=== PATIENT | female | born 1995 | race African-American/Black ===

== ENCOUNTER 2016-11-12 15:20 | Emergency (ER) | payer SELFPAY ==
[~2016-11-12 15:20] MED LIST: BACT800T5 PO
[2016-11-12 15:23] VITALS: BP 126/80; PULSE 90; RESP 18; TEMP 98.9; O2SAT 99
[2016-11-12 16:42] LABS: BLOOD, URINE NEG (NEG); COMMENT (UR) CULT NOT INDICATED; CULTURE IF INDICATED CULT NOT INDICATED; GLUCOSE,URINE NEG (NEG); KETONE, URINE NEG (NEG); MUCUS URINE FEW /lpf (OCC); NITRITE,URINE NEG (NEG); SQUAMOUS EPITHELIAL CELL URINE 1 /hpf (0-5); URINE COLOR YELLOW (YELLW/STRAW)
--- NOTE | 2016-11-12 18:17 | PD ---
HPI Chief Complaint: Bleeding Time Seen by Provider: 18:17 Travel History International Travel<30 days: No Contact w/Intl Traveler<30days: No Traveled to known affect area: No History of Present Illness HPI 21-year-old female presents to the emergency department for evaluation of vaginal bleeding and spotting for 3 weeks. Patient states that for the past 3 weeks she's had spotting and light vaginal bleeding. States that today she had heavier bleeding like a menstrual cycle and had some lower abdominal cramping earlier today. States she is currently not experiencing any pain. States that she has not had a menstrual cycle in 3 years since she had her Nexplanon placed. States that her implantation devices due to be removed in 3 months. Denies any fever, chills, nausea, vomiting, diarrhea, constipation, vaginal discharge. Unsure of status. She does engage in sexual intercourse without use of a condom. No other complaints. PFSH Past Medical History Medical History: Denies Significant Hx Bipolar Disorder: Yes Diminished Hearing: No Immunizations Current: Yes Tetanus Vaccination: < 5 Years Influenza Vaccination: No ?: Not LMP: 10/31/16 : 0 Past Surgical History Surgical History: No Previous Surgery Social History Alcohol Use: No Tobacco Use: No Substance Use: No Allergies-Medications (Allergen,Severity, Reaction): Coded Allergies: Crab (Verified Allergy, Severe, Hives, 11/12/16) Shrimp (Verified Allergy, Severe, HIVES, 11/12/16) PT. DENIES ALLERGY TO SHRIMP Reported Meds & Prescriptions Reported Meds & Active Scripts Active No Active Prescriptions or Reported Medications Review of Systems Except as stated in HPI: all other systems reviewed are Neg Physical Exam Narrative GENERAL: Well-nourished and well-developed pleasant patient in no acute distress who is nontoxic appearing. SKIN: Warm and dry. HEAD: Normocephalic and atraumatic. EYES: No injection, drainage, or hyphema noted. PERRLA. EOMI. ENT: No nasal drainage noted. Oropharynx is clear. NECK: Supple and the trachea is midline. CARDIOVASCULAR: Regular rate and rhythm. RESPIRATORY: Breath sounds are equal bilaterally with no accessory muscle use, wheezing, rhonchi, or crackles. GASTROINTESTINAL: Abdomen is soft, non-tender, and nondistended. GENITOURINARY: Normal external genitalia without lesions or erythema. Vaginal vault with thin white discharge. Cervical os was closed without drainage. Positive cervical motion tenderness. Uterus nontender and nonenlarged. Bilateral adnexa nontender without masses. Performed in the presence of Ana SON. MUSCULOSKELETAL: No obvious deformities, swelling, cyanosis, or ecchymosis is present throughout the upper and lower extremities. Patient has full range of motion without any signs of neurovascular compromise. NEUROLOGICAL: Awake, alert, and oriented. Normal speech and gait. Cranial nerves are grossly intact. Data Data Last Documented VS Vital Signs Date Time Temp Pulse Resp B/P Pulse Ox O2 Delivery O2 Flow Rate FiO2 11/12/16 17:32 86 18 99 Room Air 11/12/16 15:23 98.9 126/80 Orders Urinalysis - C+S If Indicated (11/12/16 15:54) Ed Urine Pregnancytest Poc (11/12/16 15:54) Gc And Chlamydia Pcr (11/12/16 18:39) Wet Prep Profile (11/12/16 18:39) Ceftriaxone Inj (Rocephin Inj) (11/12/16 18:45) Lidocaine 1% Inj (50 Ml) (Xylocaine 1% I (11/12/16 18:45) Azithromycin (Zithromax) (11/12/16 18:45) Labs Laboratory Tests Test 11/12/16 11/12/16 16:07 18:38 Urine Color YELLOW Urine Turbidity CLEAR Urine pH 6.0 Urine Specific [place] 1.035 Urine Protein TRACE mg/dL Urine Glucose (UA) NEG mg/dL Urine Ketones NEG mg/dL Urine Occult Blood NEG Urine Nitrite NEG Urine Bilirubin NEG Urine Urobilinogen 2.0 MG/DL Urine Leukocyte Esterase TRACE Urine RBC 3 /hpf Urine WBC 6 /hpf Urine Squamous Epithelial 1 /hpf Cells Urine Mucus FEW /lpf Microscopic Urinalysis Comment CULT NOT INDICATED Clue Cells (Wet Prep) NONE SEEN Vaginal Trichomonas (Wet Prep) NONE SEEN Vaginal Yeast (Wet Prep) NONE SEEN MDM Medical Decision Making Medical Screen Exam Complete: Yes Emergency Medical Condition: Yes Differential Diagnosis Dysmenorrhea versus versus PID versus STI Narrative Course 21-year-old female presents to the emergency department for evaluation of vaginal spotting for 3 weeks. Patient is afebrile, vital signs are stable. Abdominal examination is benign. There is no blood noted on pelvic examination. There is some scant vaginal discharge and cervical motion tenderness. ED urine test is negative. Urinalysis is unremarkable. Wet prep is negative. Gonorrhea and chlamydia is pending. Patient is treated prophylactically for PID with Rocephin 250 mg IM and Zithromax 1 g orally. The patient is likely having dysmenorrhea as her Nexplanon is due to soon and she will be ovulating again. I discussed this with the patient and she is advised to follow up as an outpatient with her right of way cutter. Patient verbalizes understanding and agreement with treatment plan. Diagnosis Primary Impression: Dysmenorrhea Referrals: [facility] Department Manager Patient Instructions: General Instructions Additional Instructions: Follow-up with your Primary Care Physician or OBGYN. Return to the ED for any acute worsening of symptoms. Med/Other Pt SpecificInfo: No Change to Meds Scripts No Active Prescriptions or Reported Meds Disposition: 01 DISCHARGE HOME Condition: Stable Stephanie Steward Nov 12, 2016 18:17
[2016-11-12] MEDS ORDERED: cefTRIAXone 250 MG VIAL IM ONE (18:45)
[2016-11-12] MEDS ORDERED: AZITHROMYCIN 250 MG TAB PO ONE (18:45)
[2016-11-12] MEDS ORDERED: LIDOCAINE HCL 1% 50 ML VIAL IM ONE (18:45)
[2016-11-12 23:08] LABS: CHLAMYDIA PCR NOT DETECTED (NOT DETECT); NEISSERIA PCR NOT DETECTED (NOT DETECT)
== END 2016-11-12 19:27 | disposition home or self-care (01) ==
LOC: NEPD 15:20
DX: N94.6 Dysmenorrhea, unspecified (principal); F31.9 Bipolar disorder, unspecified
CPT/HCPCS: 81001; 84703; 87210; 87491; 87591; 96372; 99284; J0696

== ENCOUNTER 2017-01-10 12:17 | Emergency (ER) | payer SELFPAY ==
[~2017-01-10] VITALS: Ht 162.6 cm; Wt 75.0 kg
[2017-01-10 12:19] VITALS: BP 133/85; PULSE 100; RESP 20; TEMP 99.8; O2SAT 97
--- NOTE | 2017-01-10 12:58 | PD ---
HPI Chief Complaint: Complaint Time Seen by Provider: 12:29 Travel History International Travel<30 days: No Contact w/Intl Traveler<30days: No Traveled to known affect area: No History of Present Illness HPI The patient was seen and examined in the presence of the nurse. This patient is worried about having a bladder infection. She does have some dysuria. Severity is mild to moderate. No vomiting or documented fever. Current temp 99.8 PFSH Past Medical History Bipolar Disorder: Yes Diminished Hearing: No Immunizations Current: Yes ?: Not : 0 Past Surgical History Surgical History: No Previous Surgery Social History Alcohol Use: No Tobacco Use: No Substance Use: No Allergies-Medications (Allergen,Severity, Reaction): Coded Allergies: crab (Unverified Allergy, Severe, Hives, 01/10/17) shrimp (Unverified Allergy, Severe, HIVES, 01/10/17) PT. DENIES ALLERGY TO SHRIMP Reported Meds & Prescriptions Reported Meds & Active Scripts Active No Active Prescriptions or Reported Medications Review of Systems HENT: No: Headaches Cardiovascular: No: Chest Pain or Discomfort Respiratory: No: Cough Physical Exam Narrative GASTROINTESTINAL: Abdomen soft, non-tender, nondistended. Positive bowel sounds. No hepato-splenomegaly, or palpable masses. No guarding. SKIN: Focused skin assessment reveals no rash or ulcers. Skin is warm and dry. Palpation shows no induration or nodules. Psych: Normal mood and affect. Normal insight and judgment. Data Data Last Documented VS Vital Signs Date Time Temp Pulse Resp B/P (MAP) Pulse Ox O2 Delivery O2 Flow Rate FiO2 01/10/17 12:19 99.8 100 20 133/85 (101) 97 Room Air Orders Orders Urinalysis - C+S If Indicated (01/10/17 12:34) Ed Urine Pregnancytest Poc (01/10/17 12:34) Urine Culture (01/10/17 12:35) Labs Laboratory Tests Test 01/10/17 12:35 Urine Color YELLOW Urine Turbidity CLEAR Urine pH 6.5 Urine Specific [place] 1.018 Urine Protein NEG mg/dL Urine Glucose (UA) NEG mg/dL Urine Ketones NEG mg/dL Urine Occult Blood SMALL Urine Nitrite NEG Urine Bilirubin NEG Urine Urobilinogen LESS THAN 2.0 MG/DL Urine Leukocyte Esterase MOD Urine RBC 7 /hpf Urine WBC 21 /hpf Urine Squamous Epithelial Cells <1 /hpf Urine Mucus FEW /lpf Microscopic Urinalysis Comment CULTURE INDICATED MDM Medical Decision Making Medical Screen Exam Complete: Yes Emergency Medical Condition: Yes Medical Record Reviewed: Yes Differential Diagnosis Cystitis, pyelonephritis, UTI Narrative Course I have reviewed the patient's electronic medical record. Prior culture showed Escherichia coli sensitive to all antibiotic Urinalysis shows 21 white cells and will be cultured Macrobid prescribed Diagnosis Primary Impression: Acute cystitis Qualified Codes: N30.00 - Acute cystitis without hematuria Additional Instructions: The patient was advised to follow up with their physician and return if they worsen. Med/Other Pt SpecificInfo: Prescription(s) given Scripts Nitrofurantoin Monohydrate Macrocrystals (Macrobid) 100 Mg Capsule 100 MG PO BID for Infection, #10 CAP 0 Refills Prov: Jv Blankenship MD 01/10/17 Disposition: 01 DISCHARGE HOME Condition: Stable Jv Blankenship MD Jan 10, 2017 12:58
[2017-01-10 13:13] LABS: BLOOD, URINE SMALL (NEG); COMMENT (UR) CULTURE INDICATED; CULTURE IF INDICATED CULTURE INDICATED; GLUCOSE,URINE NEG (NEG); KETONE, URINE NEG (NEG); MUCUS URINE FEW /lpf (OCC); NITRITE,URINE NEG (NEG); PH, URINE 6.5 (5.0-8.5); SQUAMOUS EPITHELIAL CELL URINE <1 /hpf (0-5); URINE COLOR YELLOW (YELLW/STRAW)
[2017-01-10] MEDS ORDERED: MACR100C2 PO (14:11)
== END 2017-01-10 14:38 | disposition home or self-care (01) ==
LOC: NEPD 12:17
DX: N30.00 Acute cystitis without hematuria (principal); B96.89 Other specified bacterial agents as the cause of diseases classified elsewhere
CPT/HCPCS: 81001; 84703; 87086; 99283

== ENCOUNTER 2017-01-12 11:38 | Emergency (ER) | payer SELFPAY ==
[~2017-01-12] VITALS: Ht 162.6 cm; Wt 74.0 kg
[~2017-01-12 11:38] MED LIST changes: -BACT800T5 PO; +MACR100C2 PO
[2017-01-12 11:39] VITALS: BP 135/76; PULSE 123; RESP 17; TEMP 102.8; O2SAT 98
[2017-01-12 13:35] LABS: AUTOMATED NEUTROPHIL # 6.5 TH/MM3 (1.8-7.7); BASOPHIL % 0.3 % (0.0-2.0); EOSINOPHIL % 0.1 % (0.0-4.0); HEMATOCRIT 41.4 % (35.0-46.0); HEMO FLAGS DIFF FINAL; LYMPH % 10.6 % (9.0-44.0); LYMPHOCYTE # 0.9 TH/MM3 (1.0-4.8); MEAN CELL VOLUME 88.1 FL (80.0-100.0); MEAN CORPUSCULAR HEMOGLOBIN 29.4 PG (27.0-34.0); MEAN CORPUSCULAR HGB CONC 33.3 % (32.0-36.0); MONO % 11.3 % (0.0-8.0); NEUT % 77.7 % (16.0-70.0); PLATELET COUNT 277 TH/MM3 (150-450); RED CELL DISTRIBUTION WIDTH 13.3 % (11.6-17.2); WHITE BLOOD COUNT 8.3 TH/MM3 (4.0-11.0)
[2017-01-12 13:50] LABS: BACTERIA, URINE OCC /hpf; BLOOD, URINE SMALL (NEG); COMMENT (UR) CULTURE INDICATED; CULTURE IF INDICATED CULTURE INDICATED; GLUCOSE,URINE NEG (NEG); KETONE, URINE NEG (NEG); MUCUS URINE FEW /lpf (OCC); NITRITE,URINE NEG (NEG); SQUAMOUS EPITHELIAL CELL URINE 4 /hpf (0-5); URINE COLOR YELLOW (YELLW/STRAW)
[2017-01-12 13:52] LABS: ALT (GPT) 24 U/L (10-53); ANION GAP 7 MEQ/L (5-15); AST (GOT) 20 U/L (15-37); BICARBONATE 27.7 MEQ/L (21.0-32.0); BLOOD UREA NITROGEN 7 MG/DL (7-18); CHLORIDE 99 MEQ/L (98-107); GLOMERULAR FILTRATION RATE 101 ML/MIN (>89); POTASSIUM 3.7 MEQ/L (3.5-5.1); SODIUM (NA) 134 MEQ/L (136-145)
[2017-01-12 13:54] LABS: ALKALINE PHOSPHATASE 71 U/L (45-117); TOTAL BILIRUBIN ADULT 0.5 MG/DL (0.2-1.0)
[2017-01-12 14:24] VITALS: BP 124/84; PULSE 130; RESP 16; TEMP 103; O2SAT 99
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
[2017-01-12] MEDS ORDERED: ACETAMINOPHEN 325 MG TAB PO ONE (14:45)
[2017-01-12] MEDS ORDERED: SODIUM CHLOR 0.9% 1000 ML INJ 1,000 ML IV ONE ×2 (14:45)
[2017-01-12] MEDS ORDERED: cefTRIAXone INJ 1,000 MG in SODIUM CHLORIDE 0.9% INJ 100 ML IV ONE (14:45)
[2017-01-12] MEDS ORDERED: IOHEXOL 350 MG/ML 10 ML VIAL (for RAD DIAG) IVCONTRAST ONE (17:35)
--- NOTE | 2017-01-12 17:51 | RADRPT ---
EXAM DATE/TIME: 01/12/2017 17:27 [facility] COMPARISON: No previous studies available for comparison. INDICATIONS : Fever and lower back pain. Recent UTI diagnosis. IV CONTRAST: 85 cc Omnipaque 350 (iohexol) IV ORAL CONTRAST: No oral contrast ingested. RADIATION DOSE: 14.78 CTDIvol (mGy) MEDICAL HISTORY : None SURGICAL HISTORY : None. ENCOUNTER: Initial ACUITY: 1 day PAIN SCALE: 4/10 LOCATION: Bilateral lower back TECHNIQUE: Volumetric scanning of the abdomen and pelvis was performed. Using automated exposure control and ad justment of the mA and/or kV according to patient size, radiation dose was kept as low as reasonably achievable to obtain optimal diagnostic quality images. DICOM format image data is available electro nically for review and comparison. FINDINGS: LOWER LUNGS: The visualized lower lungs are clear. LIVER: Homogeneous density without lesion. There is no dilation of the biliary tree. No calcified gallston es. There is mild hepatic steatosis. SPLEEN: Normal size without lesion. PANCREAS: Within normal limits. KIDNEYS: Normal in size and shape. There is no mass, stone or hydronephrosis. ADRENAL GLANDS: Within normal limits. VASCULAR: There is no aortic aneurysm. BOWEL/MESENTERY: No oral contrast was given limiting the sensitivity. There is a mildly nonspecific, nonobstructed gas pattern with multiple loops of nondilated air-containing small bowel. There are multiple small air-f luid levels in the colon and small bowel. There is no free intraperitoneal air or fluid. ABDOMINAL WALL: Within normal limits. RETROPERITONEUM: There is no lymphadenopathy. BLADDER: No wall thickening or mass. REPRODUCTIVE: Within normal limits. INGUINAL: There is no lymphadenopathy or hernia. MUSCULOSKELETAL: Within normal limits for patient age. CONCLUSION: 1. The kidneys are unremarkable appearance with no renal calculi structure in. 2. Mildly nonspecific, nonobstructed bowel gas pattern which could represent gastroenteritis and/or i leus. 3. Mild hepatic steatosis. Barrett Peters MD on January 12, 2017 at 17:47 Board Certified Radiologist. This report was verified electronically.
[2017-01-12] MEDS ORDERED: AZITHROMYCIN PWD FOR SUSP 1 GM PACKET PO ONE (18:00)
[2017-01-12 18:57] VITALS: BP 132/75; PULSE 110; RESP 18; TEMP 100.7; O2SAT 99
[2017-01-12] MEDS ORDERED: MACR100C2 PO (18:59)
[2017-01-12] MEDS ORDERED: DOXY100C PO (18:59)
[2017-01-12] MEDS ORDERED: METR-1 PO (18:59)
[2017-01-12] MEDS ORDERED: IBUPROFEN 600 MG TAB PO ONE (19:15)
[2017-01-12] MEDS ORDERED: AZITHROMYCIN 250 MG TAB PO ONE (19:30)
[2017-01-12 22:32] LABS: CHLAMYDIA PCR NOT DETECTED (NOT DETECT); NEISSERIA PCR NOT DETECTED (NOT DETECT)
== END 2017-01-12 19:39 | disposition home or self-care (01) ==
LOC: NEPE 11:38
DX: N10 Acute pyelonephritis (principal); N73.9 Female pelvic inflammatory disease, unspecified
CPT/HCPCS: 74177; 80053; 81001; 83605; 84703; 85025; 87040; 87081; 87086; 87210; 87491; 87591; 87804; 87880; J0696; J7030; Q9967; 96365; 96366

== ENCOUNTER 2017-02-17 16:17 | Emergency (ER) | payer SELFPAY ==
[~2017-02-17] VITALS: Ht 162.6 cm; Wt 77.0 kg
[~2017-02-17 16:17] MED LIST changes: +DOXY100C PO; +METR-1 PO
[2017-02-17 16:18] VITALS: BP 136/84; PULSE 122; RESP 20; TEMP 99.7; O2SAT 99
--- NOTE | 2017-02-17 18:11 | PD ---
HPI Chief Complaint: Laceration/Skin Injury Time Seen by Provider: 18:11 Travel History International Travel<30 days: No Contact w/Intl Traveler<30days: No Traveled to known affect area: No History of Present Illness HPI 21-year-old female presents emergency Department with concern and complaint of possible lacerations to her right forearm and hand after punching a glass window. No tetanus status. Denies paresthesias, loss of sensation, decreased range of motion, decreased strength to the affected extremity. Bleeding is controlled. She has not taken any medications or tried any treatments to alleviate her symptoms. Symptoms are mild in severity. No known aggravating or relieving factors. Denies fever, vomiting. Allergies to crab and shrimp. No other medical complaints. No other modifying factors or associated signs and symptoms. PFSH Past Medical History Hx Anticoagulant Therapy: No Bipolar Disorder: Yes Cardiovascular Problems: No Chemotherapy: No Cerebrovascular Accident: No Diabetes: No Diminished Hearing: No Respiratory: No Immunizations Current: Yes ?: Not : 0 Past Surgical History Hysterectomy: No Social History Alcohol Use: No Tobacco Use: No Substance Use: No Allergies-Medications (Allergen,Severity, Reaction): Coded Allergies: crab (Unverified Allergy, Severe, Hives, 02/17/17) shrimp (Unverified Allergy, Severe, HIVES, 02/17/17) PT. DENIES ALLERGY TO SHRIMP Reported Meds & Prescriptions Reported Meds & Active Scripts Active Review of Systems Except as stated in HPI: all other systems reviewed are Neg Physical Exam Narrative GENERAL: Well-nourished, well-developed black female patient, in no acute distress SKIN: Warm and dry. Palmar aspect of right hand with approximately 1.5 cm horseshoe-shaped cut; bleeding controlled. Palmar aspect of right forearm with superficial abrasions; bleeding controlled. Both areas are without erythema, edema. No signs of infection. Right hand with full range of motion at all fingers and sensory intact; fingers are pink and warm with less than 2 second cap refill. HEAD: Atraumatic. Normocephalic. EYES: Pupils equal and round. No scleral icterus. No injection or drainage. ENT: Mucosa pink and moist. Airway patent. NECK: Trachea midline. CARDIOVASCULAR: Regular rate. RESPIRATORY: No accessory muscle use. GASTROINTESTINAL: Rounded. MUSCULOSKELETAL: No obvious deformities. No clubbing. No cyanosis. No edema. NEUROLOGICAL: Awake and alert. Oriented 3. No obvious cranial nerve deficits. Motor grossly within normal limits. Normal speech. PSYCHIATRIC: Appropriate mood and affect; insight and judgment normal. Data Data Last Documented VS Vital Signs Date Time Temp Pulse Resp B/P (MAP) Pulse Ox O2 Delivery O2 Flow Rate FiO2 02/17/17 16:18 99.7 122 20 136/84 (101) 99 Room Air Orders Orders Tetanus/Diphtheria Tox Adult (Tetanus/Di (02/17/17 18:15) Ed Discharge Order (02/17/17 18:24) MDM Medical Decision Making Medical Screen Exam Complete: Yes Emergency Medical Condition: Yes Medical Record Reviewed: Yes Differential Diagnosis Laceration, cut, abrasion Narrative Course 21-year-old female with a cut to the right hand and abrasion of her right forearm after hitting through a glass window. Tetanus updated in the ER. Wound care provided. Dressings applied. Instructed patient on wound care. Instructed patient to follow up with primary care provider. Patient verbalizes understanding and agreement with treatment plan. Patient is medically cleared and stable for discharge. Discussed reasons to return to the emergency department. Patient agrees with treatment plan. The patients vital signs are stable and the patient is stable for outpatient follow-up and treatment. Patient discharged home, stable and in no acute distress. Diagnosis Primary Impression: Cut of right hand Qualified Codes: S61.401A - Unspecified open wound of right hand, initial encounter Additional Impression: Abrasion of right forearm Qualified Codes: S50.811A - Abrasion of right forearm, initial encounter Referrals: [facility] Primary Care Physician Patient Instructions: Acute Wound Care (DC), General Instructions Additional Instructions: Ibuprofen or Tylenol as instructed for pain and inflammation Keep area clean and dry Antibiotic ointment as directed nausea for wound care Bandage as needed Your tetanus vaccination was updated at today's visit Follow-up with primary care provider Return to the emergency department immediately with worsening of symptoms Med/Other Pt SpecificInfo: No Meds Exist/No RX given Disposition: 01 DISCHARGE HOME Condition: Stable Stephanie Jeffries Feb 17, 2017 18:11
[2017-02-17] MEDS ORDERED: TETANUS/DIPHTHERIA TOXOID ADULT 0.5 ML VIAL IM ONE (18:15)
== END 2017-02-17 18:50 | disposition home or self-care (01) ==
LOC: NEPK 16:17
DX: S61.401A Unspecified open wound of right hand, initial encounter (principal); S50.811A Abrasion of right forearm, initial encounter; Z23 Encounter for immunization; Z86.59 Personal history of other mental and behavioral disorders; W22.09XA Striking against other stationary object, initial encounter
CPT/HCPCS: 90471; 90714

== ENCOUNTER 2017-09-13 17:01 | Emergency (ER) | payer OTHER ==
[~2017-09-13] VITALS: Ht 162.6 cm; Wt 72.5 kg
[2017-09-13 17:21] VITALS: BP 165/79; PULSE 93; RESP 16; TEMP 99.8; O2SAT 99
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
[2017-09-13 20:25] LABS: BACTERIA, URINE RARE /hpf; BILIRUBIN, URINE NEG (NEG); BLOOD, URINE NEG (NEG); GLUCOSE,URINE NEG (NEG); KETONE, URINE TRACE mg/dL (NEG); MUCUS URINE FEW /lpf (OCC); NITRITE,URINE NEG (NEG); PH, URINE 6.5 (5.0-8.5); SQUAMOUS EPITHELIAL CELL URINE 9 /hpf (0-5); URINE COLOR YELLOW (YELLW/STRAW); URINE LEUKOCYTE ESTERASE LARGE (NEG)
== END 2017-09-13 21:49 | disposition home or self-care (01) ==
LOC: NEPD 17:01
DX: R07.89 Other chest pain (principal); J06.9 Acute upper respiratory infection, unspecified; O98.519 Other viral diseases complicating pregnancy, unspecified trimester; B96.89 Other specified bacterial agents as the cause of diseases classified elsewhere; R05 Cough; F31.9 Bipolar disorder, unspecified; Z3A.00 Weeks of gestation of pregnancy not specified
CPT/HCPCS: 81001; 84703; 86403; 87086; 99283

== ENCOUNTER 2017-10-26 21:59 | Emergency (ER) | payer OTHER ==
[2017-10-26 22:32] VITALS: BP 122/82; PULSE 82; RESP 16; O2SAT 100
--- NOTE | 2017-10-26 23:53 | PD ---
HPI Chief Complaint needs to be cleared for care home Date Seen: Oct 26, 2017 Time Seen: 23:30 Travel History International Travel<30 Days: No Contact w/Intl Traveler<30Days: No Known Affected Area: No History of Present Illness HPI pt presents c/o needing to be cleared for care home. pt is a 22 yo presenting at 18 wks. care has been with dr. ridley and uncomplicated to date. pt denies n/v/VB or contractions History Past Medical History Medical History: Denies Significant Hx Past Surgical History Surgical History: No Previous Surgery Family History Family History: Negative Social History Alcohol Use: No Tobacco Use: No Substance Abuse: No Allergies-Medications (Allergen,Severity, Reaction): Coded Allergies: crab (Unverified Allergy, Severe, Hives, 10/26/17) shrimp (Unverified Allergy, Severe, HIVES, 10/26/17) PT. DENIES ALLERGY TO SHRIMP Home Meds No Active Prescriptions or Reported Meds Review of Systems Except as stated in HPI: all other systems reviewed are Neg Physical Exam Vital Signs Date Time Temp Pulse Resp B/P (MAP) Pulse Ox O2 Delivery O2 Flow Rate FiO2 10/26/17 22:32 82 16 122/82 (95) 100 Room Air Narrative GENERAL: Well-nourished, well-developed patient. SKIN: Warm and dry. HEAD: Normocephalic and atraumatic. EYES: No scleral icterus. No injection or drainage. ENT: No nasal drainage noted. Mucous membranes pink. Airway patent. NECK: Supple, trachea midline. No JVD. CARDIOVASCULAR: Regular rate and rhythm without murmurs, gallops, or rubs. RESPIRATORY: Breath sounds equal bilaterally. No accessory muscle use. BREASTS: Bilateral exam showed no masses , no retractions, no nipple discharge. ABDOMEN/GI: Abdomen soft, non-tender, bowel sounds present, no rebound, no guarding Gravid FHT's: Baseline: [-] 160 EXTREMITIES: No cyanosis or edema. BACK: Nontender without obvious deformity. No CVA tenderness. NEUROLOGICAL: Awake and alert. Motor and sensory grossly within normal limits. Five out of 5 muscle strength in all muscle groups. Normal speech. Data Data Vital Signs Reviewed: Yes MDM Interpretation(s) IUP @ 18wk Plan d/c to care home no acute problems with noted Disposition: 01 DISCHARGE HOME Condition: Stable Scripts No Active Prescriptions or Reported Meds Christy Holman MD Oct 26, 2017 23:53
== END 2017-10-27 00:15 | disposition home or self-care (01) ==
LOC: HOBED 21:59 → EEVIPCON 21:59 → HOBED 10-27 00:15
DX: Z02.89 Encounter for other administrative examinations (principal); O99.89 Other specified diseases and conditions complicating pregnancy, childbirth and the puerperium; Z3A.18 18 weeks gestation of pregnancy
CPT/HCPCS: 99281

== ENCOUNTER 2018-03-28 20:31 | Inpatient (IN) ==
[2018-03-28] MEDS ORDERED: Lidocaine 1% Inj 50 ML Vial ONE (20:47)
[2018-03-28] MEDS ORDERED: Sod Chloride 0.9% Inj 1,000 ML IV.CONT PRN (21:36)
[2018-03-28] MEDS ORDERED: Naloxone Inj 0.4 MG/ML Vial IV.PUSH PRN (21:36)
[2018-03-28] MEDS ORDERED: Sodium Chlor 0.9% Inj 500 ML IV.SIG PRN (21:36)
[2018-03-28] MEDS ORDERED: Oxytocin 30 Units/500ml Premix 30 UNITS/500 ML BAG IV.SIG ONE (21:36)
[2018-03-28 21:43] LABS: Baso % (Auto) 0.4 % (0.0-2.0); Eos # (Auto) 0.2 th/mm3 (0.0-0.4); Eos % (Auto) 1.6 % (0.0-4.0); Lymph # (Auto) 2.4 th/mm3 (1.0-4.8); Lymph % (Auto) 25.1 % (9.0-44.0); Mean Corpuscular HGB Conc 33.5 % (32.0-36.0); Mean Corpuscular Hemoglobin 28.5 pg (27.0-34.0); Mean Corpuscular Volume 85.3 fL (80.0-100.0); Mean Platelet Volume 8.6 fL (7.0-11.0); Mono % (Auto) 10.9 % (0.0-8.0); Neut # (Auto) 5.9 th/mm3 (1.8-7.7); Platelet Count 331 th/mm3 (150-450); Red Blood Count 3.87 mil/mm3 (4.00-5.30); Red Cell Distribution Width 15.8 % (11.6-17.2); White Blood Count 9.6 th/mm3 (4.0-11.0)
[2018-03-28] MEDS ORDERED: Citric Acid/Sodium Citrate Liq 30 ML UDC PO SCH (21:45)
[2018-03-28 21:52] LABS: Amphetamine Urine With Conf Neg (Neg); Benzodiazepine Urine With Conf Neg (Neg); Cocaine Urine With Conf Neg (Neg); Opiates Urine With Conf Neg (Neg)
[2018-03-28 21:53] LABS: Cannabinoid Urine With Conf Neg (Neg)
[2018-03-28 22:06] LABS: Albumin 2.8 g/dL (3.4-5.0); Anion Gap 9 meq/L (5-15); Aspartate Aminotransferase 12 U/L (15-37); Blood Urea Nitrogen 9 mg/dL (7-18); Carbon Dioxide 22.2 meq/L (21.0-32.0); Chloride 106 meq/L (98-107); Glomerular Filtration Rate Greater Than 89 mL/min (>89); Glucose,Random 68 mg/dL (74-106); Sodium 137 meq/L (136-145)
[2018-03-28 22:08] LABS: Alanine Aminotransferase 15 U/L (10-53)
[2018-03-28 22:10] LABS: Alkaline Phosphatase 180 U/L (45-117); Total Protein 7.8 g/dL (6.4-8.2)
[2018-03-29] MEDS ORDERED: Oxytocin 30 Units/500ml Premix 30 UNITS/500 ML BAG IV.SIG PRN (06:23)
--- NOTE | 2018-03-29 09:19 | P.HP ---
History of Present Illness Service: labor and delivery Primary Care Physician: NOT REQUIRED Chief Complaint: induction of labor at 40 6/7 weeks History of Present Illness: pt 40 6/7 weeks was seen in the office on 03/[address] Shadi vigil and vertex per ultrasound. Pt scheduled for admission with cytotec induction and Pitocin the following day. GBS positive - Diagnosis (1) Elective induction of labor planned (2) 41 weeks gestation of Inpatient Certification: I certify that the inpatient services were ordered in accordance with Medicare regulations governing the order. This includes certification that hospital inpatient services are reasonable and necessary and in the case of services not specified as inpatient-only under 42 CFR 419.22(n), that they are appropriately provided as inpatient services in accordance to with the 2-midnight benchmark under 43 CFR 412.3(e) Estimated Total Length of Stay (Days): 3 Plans for Post Hospital Care: Home Review of Systems All other systems reviewed negative except as stated in HPI PMFSH - History History Provided By: Medical Record - Medical / Surgical Hx Neg / Unobtainable Surgical History: No Previous Surgery - Social History I have reviewed the patient's Social History: Yes - Tobacco History Second Hand Smoke Exposure: No Smoking Status: Never smoker - Alcohol History How Often Do You Have a Drink Containing Alcohol: Never - Substance Use History Substance History: Past History (states she smoked a joint recently) - Travel History History of Recent Travel: No Recent Travel in the [place] Within the Last 8 Weeks: No Recent Travel Out of the Country Within the Last 8 Weeks: No - Immunization History Hx Influenza Vaccine This Season: Yes Medications and Allergies Active Medications: Active Medications Citric Acid/Sodium Citrate (Sodium Citrate/Citric Acid Liq) 30 ml PO [employer] [facility] Stop: 04/01/18 21:44 Fentanyl Citrate (Fentanyl Inj) 50 mcg IV.PUSH Q1H PRN PRN Reason: Pain Scale 3 - 5 Fentanyl Citrate (Fentanyl Inj) 100 mcg IV.PUSH Q1H PRN PRN Reason: PAIN SCALE 6 TO 10 Lactated Ringer's (Lr 1000 Ml Inj) 1,000 mls @ 125 mls/hr IV.SIG .Q8H [facility] Last Admin: 03/29/18 01:51 Dose: 125 mls/hr Lactated Ringer's (Lr 1000 Ml Inj) 1,000 mls @ 3,000 mls/hr IV.SIG UNSCH PRN PRN Reason: compromise or epidural Sodium Chloride (Ns Inj) 1,000 mls @ 100 mls/hr IV.CONT .Q10H PRN PRN Reason: SEE LABEL COMMENTS Penicillin G Potassium 5,000, (000 unit/ Sodium Chloride) 100 mls @ 200 mls/hr IV.SIG ONCE ONE Stop: 03/28/18 22:05 Penicillin G Potassium 2,500, (000 unit/ Sodium Chloride) 100 mls @ 200 mls/hr IV.SIG Q4H BETSY Sodium Chloride (Ns Inj) 500 mls @ 1,000 mls/hr IV.SIG UNSCH PRN PRN Reason: SEE LABEL COMMENTS Oxytocin (Pitocin 30 Units/Ns 500 Ml Premix) 30 units in 500 mls @ 2 mls/hr IV.SIG TITRATE PRN; Protocol PRN Reason: For induction of labor Last Admin: 03/29/18 06:32 Dose: 2 milliunit/min, 2 mls/hr Lidocaine HCl (Xylocaine 1% Inj) 0.1 ml I-DERMAL PRN PRN PRN Reason: For IV start Stop: 03/31/18 21:35 Lidocaine HCl (Xylocaine 1% Inj) 10 ml INFILTRATN PRN PRN PRN Reason: For episiotomy repair Stop: 03/30/18 21:35 Mineral Oil (Muri-Lube Oil) 10 ml TOPICAL PRN PRN PRN Reason: PRN perineal massage Misoprostol (Cytotec) 25 mcg VAGINAL Q4H PRN PRN Reason: FOR INDUCTION Last Admin: 03/29/18 01:51 Dose: 25 mcg Naloxone HCl (Narcan Inj) 0.1 mg IV.PUSH Q2M PRN PRN Reason: for opiate reversal Ondansetron HCl (Zofran Inj) 4 mg IV.PUSH Q6H PRN PRN Reason: NAUSEA OR VOMITING Zolpidem Tartrate (Ambien) 10 mg PO HS PRN PRN Reason: SLEEP Allergies Allergy/AdvReac Type Severity Reaction Status Date / Time crab Allergy Severe Hives Verified 11/15/17 14:13 shrimp Allergy Severe HIVES Verified 11/15/17 14:13 Home Medications Medication Instructions Recorded Confirmed Type No Known Home Medications 03/28/18 03/28/18 History Exam Vital signs: Vital Signs 03/28/18 21:00 03/28/18 21:30 03/28/18 23:22 Temperature 98.5 F Pulse Rate 98 H Respiratory Rate 18 18 18 Blood Pressure 141/85 H 03/29/18 00:30 03/29/18 00:55 03/29/18 01:59 Temperature Pulse Rate 98 H Respiratory Rate 18 18 18 Blood Pressure 128/69 03/29/18 02:00 03/29/18 02:30 03/29/18 03:00 Temperature 98.4 F Pulse Rate Respiratory Rate 18 18 Blood Pressure 03/29/18 03:18 03/29/18 04:00 03/29/18 04:30 Temperature Pulse Rate Respiratory Rate 18 18 18 Blood Pressure 03/29/18 05:00 03/29/18 05:30 03/29/18 06:00 Temperature Pulse Rate Respiratory Rate 18 18 18 Blood Pressure 03/29/18 06:33 03/29/18 06:35 03/29/18 06:36 Temperature 98.2 F Pulse Rate 93 H Respiratory Rate 18 Blood Pressure 129/72 03/29/18 07:15 03/29/18 07:42 03/29/18 08:45 Temperature Pulse Rate Respiratory Rate 18 18 18 Blood Pressure 03/29/18 08:46 Temperature Pulse Rate 89 Respiratory Rate Blood Pressure 125/80 Intake & Output 03/28/18 03/29/18 03/29/18 18:59 06:59 18:59 Intake Total 1000 / 1000 Balance 1000 / 1000 Weight 96.162 kg Intake: IV 1000 / 1000 LR 1000 mL Inj 1,000 ML @ 125 1000 / 1000 mls/hr IV.SIG .Q8H [facility] Rx#: [id number] Other: Weight On Admission 96.162 kg - Constitutional no acute distress - Routine HEENT Exam Head: Present: normocephalic ENT: Present: mucous membranes moist - Routine Neck Exam Present: supple, full ROM - Routine Respiratory Exam Present: CTA bilaterally - Routine Cardiovascular Exam Present: RRR, S1, S2 - Routine Abdominal Exam Present: soft, normoactive bowel sounds Comments: gravid - Routine Extremities Exam Comments: mild edema, no calf pain - Routine Neurological Exam Present: alert, oriented X3 Results - Labs CBC & Chem 7: 03/28/18 21:00 03/28/18 21:00 Labs: Laboratory Results - last 24 hr 03/28/18 03/28/18 03/28/18 20:35 21:00 21:00 WBC 9.6 RBC 3.87 L Hgb 11.0 L Hct 33.0 L MCV 85.3 MCH 28.5 MCHC 33.5 RDW 15.8 Plt Count 331 MPV 8.6 Neut % (Auto) 62.0 Lymph % (Auto) 25.1 [place] % (Auto) 10.9 H Eos % (Auto) 1.6 Baso % (Auto) 0.4 Neut # (Auto) 5.9 Lymph # (Auto) 2.4 [place] # (Auto) 1.0 H Eos # (Auto) 0.2 Baso # (Auto) 0.0 WBC Differential . Differential Comment Auto diff final Sodium Potassium Chloride Carbon Dioxide Anion Gap BUN Creatinine Estimated GFR Random Glucose Calcium Total Bilirubin AST ALT Alkaline Phosphatase Total Protein Albumin Urine Opiates Screen Neg Ur Barbiturates Screen Neg Ur Amphetamine Screen Neg U Benzodiazepines Scrn Neg Urine Cocaine Screen Neg U Cannabinoids Screen Neg Blood Type O Positive Blood Type Recheck Required 03/28/18 21:00 WBC RBC Hgb Hct MCV MCH MCHC RDW Plt Count MPV Neut % (Auto) Lymph % (Auto) [place] % (Auto) Eos % (Auto) Baso % (Auto) Neut # (Auto) Lymph # (Auto) [place] # (Auto) Eos # (Auto) Baso # (Auto) WBC Differential Differential Comment Sodium 137 Potassium 4.0 Chloride 106 Carbon Dioxide 22.2 Anion Gap 9 BUN 9 Creatinine 0.70 Estimated GFR Greater than 89 Random Glucose 68 L Calcium 9.0 Total Bilirubin 0.2 AST 12 L ALT 15 Alkaline Phosphatase 180 H Total Protein 7.8 Albumin 2.8 L Urine Opiates Screen Ur Barbiturates Screen Ur Amphetamine Screen U Benzodiazepines Scrn Urine Cocaine Screen U Cannabinoids Screen Blood Type Blood Type Recheck Caprini VTE Risk Assessment Caprini VTE Risk Assessment: No/Low Risk (score <= 1) Caprini Risk Assessment Model: Point Value = 1 Point Value = 2 Point Value = 3 Point Value = 5 Age 41-60 Minor surgery BMI > 25 kg/m2 Swollen legs Varicose veins or History of unexplained or recurrent spontaneous Oral contraceptives or hormone replacement Sepsis (< 1 month) Serious lung disease, including pneumonia (< 1 month) Abnormal pulmonary function Acute myocardial infarction Congestive heart failure (< 1 month) History of inflammatory bowel disease Medical patient at bed rest Age 61-74 Arthroscopic surgery Major open surgery (> 45 min) Laparoscopic surgery (> 45 min) Malignancy Confined to bed (> 72 hours) Immobilizing plaster cast Central venous access Age >= 75 History of VTE Family history of VTE Factor V Leiden Prothrombin [id number] Lupus anticoagulant Anticardiolipin antibodies Elevated serum homocysteine Heparin-induced thrombocytopenia Other congenital or acquired thrombophilia Stroke (< 1 month) Elective arthroplasty Hip, pelvis, or leg fracture Acute spinal cord injury (< 1 month) Prophylaxis Regimen: Total Risk Factor Score Risk Level Prophylaxis Regimen 0-1 Low Early ambulation 2 Moderate Order ONE of the following: *Sequential Compression Device (SCD) *Heparin 5000 units SQ BID 3-4 Higher Order ONE of the following medications: *Heparin 5000 units SQ TID *Enoxaparin/Lovenox 40 mg SQ daily (WT < 150 kg, CrCl > 30 mL/min) *Enoxaparin/Lovenox 30 mg SQ daily (WT < 150 kg, CrCl > 10-29 mL/min) *Enoxaparin/Lovenox 30 mg SQ BID (WT < 150 kg, CrCl > 30 mL/min) AND/OR *Sequential Compression Device (SCD) 5 or more Highest Order ONE of the following medications: *Heparin 5000 units SQ TID (Preferred with Epidurals) *Enoxaparin/Lovenox 40 mg SQ daily (WT < 150 kg, CrCl > 30 mL/min) *Enoxaparin/Lovenox 30 mg SQ daily (WT < 150 kg, CrCl > 10-29 mL/min) *Enoxaparin/Lovenox 30 mg SQ BID (WT < 150 kg, CrCl > 30 mL/min) AND *Sequential Compression Device (SCD) Assessment and Plan - Assessment (1) Elective induction of labor planned Status: Acute Plan: cytotec 03/28, pitocin 03/29 (2) 41 weeks gestation of Code(s): Z3A.41 - 41 weeks gestation of Status: Acute Plan: induction - Plan admission 03/28 for cytotec induction Pitocin in am, clear diet planning for may require 2nd day of induction routine
[2018-03-29] MEDS: fentaNYL Citrate Inj 100 MCG/2 ML Ampul IV.PUSH PRN ×2 (12:45→15:38)
[2018-03-30] MEDS: fentaNYL Citrate Inj 100 MCG/2 ML Ampul IV.PUSH PRN ×2 (03:57→08:24)
[2018-03-30] MEDS ORDERED: Lidocaine 1% Inj 50 ML Vial ONE (06:09)
[2018-03-30] MEDS ORDERED: Penicillin G Potassium Inj 5,000,000 UNIT in Sodium Chloride 0.9% Inj 100 ML IV.SIG ONE (06:15)
[2018-03-30] MEDS ORDERED: Oxytocin 30 Units/500ml Premix 30 UNITS/500 ML BAG IV.SIG PRN (07:00)
[2018-03-30] MEDS ORDERED: fentaNYL 2MCG-Bupiv 0.125% Epi 150 ML EPIDURAL ONE (09:38)
[2018-03-30] MEDS: Penicillin G Potassium Inj 2,500,000 UNIT in Sodium Chlor 0.9% Inj 100 ML IV.SIG SCH ×3 (10:21→18:03)
[2018-03-30] MEDS ORDERED: fentaNYL Citrate Inj 100 MCG/2 ML Ampul ONE (11:05)
[2018-03-30] MEDS ORDERED: Diphtheria/Tetanus/Pertussis Vaccine Inj 0.5 ML Syringe IM ONE (16:00)
[2018-03-30] MEDS ORDERED: Measles/Mumps/Rubella Vaccine Inj 0.5 ML Vial SQ ONE (16:00)
[2018-03-30] MEDS ORDERED: fentaNYL Citrate Inj 100 MCG/2 ML Ampul EPIDURAL ONE (16:31)
[2018-03-30] MEDS ORDERED: fentaNYL 2MCG-Bupiv 0.125% Epi 150 ML EPIDURAL PRN (17:00)
[2018-03-30] MEDS ORDERED: Bisacodyl 10 MG Supp RECTAL PRN (22:33)
[2018-03-30] MEDS ORDERED: Witch Hazel 50%/Glyderin 12.5% 40 Pad Jar RECTAL PRN (22:33)
[2018-03-30] MEDS ORDERED: Benzocaine 20% Top Spray 60 ML Can TOPICAL PRN (22:33)
[2018-03-30] MEDS ORDERED: Naloxone Inj 0.4 MG/ML Vial IV.PUSH PRN (22:33)
[2018-03-30] MEDS ORDERED: Zolpidem Tartrate 5 MG Tablet PO PRN (22:33)
[2018-03-30] MEDS ORDERED: Acetaminophen 325 MG Tablet PO PRN (22:33)
[2018-03-30] MEDS ORDERED: Oxytocin 30 Units/500ml Premix 30 UNITS/500 ML BAG IV.CONT PRN (22:33)
--- NOTE | 2018-03-30 22:41 | P.OBDELI ---
Patient Started Active Labor: No Active Labor Start Date: 03/30/18 Medical Induction of Labor: Yes Medical Induction Start Date: 03/29/18 Artificial Rupture of Membrane: No Anesthesia: Epidural Episiotomy: midline Vaginal Delivery: Normal, Vacuum Presentation: Occiput anterior Nuchal Cord: None Delayed Cord Clamping (45 sec): Yes Shoulder Dystocia: Suprapubic pressure given, Shiela maneuver done Placenta: Spontaneous delivery, Intact, 3 vessel cord, Cord pH Laceration: Episiotomy Repair: Vicryl running Estimated blood loss (mL): 300 Infant: Female Female A Weight: 3.26 kg score (1 min): 5 score (5 min): 7 Additional Information: Difficult vacuum delivery of [place] Yen. Pt was exhausted and applied vacuum when baby was and pulled thru 3 UCs. Pop off X2. Continued to push and could not push the baby out..Reapplied the vacuum and delivered the baby Moderate shoulder resolved with Shiela and suprapubic pressure. Baby had some abrasion of the scalp from the vacuum. Cat the [employer]NAGER from peds came in Baby did well and ABG was good.
[2018-03-30 22:49] LABS: Cord Arterial Blood HCO3 20.1
[2018-03-31] MEDS: Penicillin G Potassium Inj 2,500,000 UNIT in Sodium Chlor 0.9% Inj 100 ML IV.SIG SCH (02:23)
[2018-03-31] MEDS: Senna/Docusate Sodium 8.6/50 MG Tablet PO SCH ×2 (11:09→22:59)
--- NOTE | 2018-03-31 16:06 | P.PNOB ---
Subjective Post day: 1 Objective Vital Signs/I&O: Vital Signs 03/30/18 16:30 03/30/18 17:00 03/30/18 17:32 Temperature 97.8 F Pulse Rate 86 74 284 H Respiratory Rate 16 Blood Pressure 102/63 109/73 91/67 L 03/30/18 18:01 03/30/18 18:45 03/30/18 19:00 Temperature Pulse Rate 102 H 106 H Respiratory Rate 18 18 Blood Pressure 113/63 124/71 126/73 03/30/18 19:10 03/30/18 19:55 03/30/18 20:00 Temperature Pulse Rate 91 H 96 H 112 H Respiratory Rate Blood Pressure 101/80 126/76 143/82 H 03/30/18 20:15 03/30/18 20:46 03/30/18 21:15 Temperature Pulse Rate 110 H 109 H 123 H Respiratory Rate 18 Blood Pressure 144/44 H 143/94 H 139/84 03/30/18 22:00 03/30/18 22:20 03/30/18 22:30 Temperature Pulse Rate 121 H 114 H 104 H Respiratory Rate 18 Blood Pressure 137/70 137/78 136/84 03/30/18 22:35 03/30/18 22:46 03/30/18 22:50 Temperature 99.4 F Pulse Rate 117 H Respiratory Rate 18 18 Blood Pressure 128/93 H 03/30/18 23:05 03/30/18 23:19 03/30/18 23:31 Temperature Pulse Rate 100 H 100 H 96 H Respiratory Rate 18 18 Blood Pressure 120/95 H 125/77 135/78 03/30/18 23:35 03/30/18 23:49 03/31/18 00:30 Temperature Pulse Rate 105 H Respiratory Rate 18 18 18 Blood Pressure 124/89 03/31/18 00:31 03/31/18 00:50 03/31/18 08:00 Temperature 98.4 F 98.4 F Pulse Rate 85 85 88 Respiratory Rate 18 20 Blood Pressure 121/72 138/82 121/67 Intake & Output 03/30/18 03/31/18 03/31/18 18:59 06:59 18:59 Intake Total 2300 / 2300 Balance 2300 / 2300 Intake: IV 2300 / 2300 LR 1000 mL Inj 1,000 ML @ 125 2000 / 2000 mls/hr IV.SIG .Q8H [facility] Rx#: [id number] Pfizerpen-G Inj 2,500,000 UNIT 200 / 200 In NS Inj 100 ML @ 200 mls/hr IV.SIG Q4H [facility] Rx#:[id number] Pfizerpen-G Inj 5,000,000 UNIT 100 / 100 In NS Inj 100 ML @ 200 mls/hr IV.SIG ONCE ONE Rx#:[id number] Result Diagrams: 03/28/18 21:00 03/28/18 21:00 Objective Remarks: GENERAL: Well-nourished, well-developed patient. CARDIOVASCULAR: Regular rate and rhythm without murmurs, gallops, or rubs. RESPIRATORY: Breath sounds equal bilaterally. No accessory muscle use. ABDOMEN/GI: Abdomen soft, non-tender. Fundus: Firm, non-tender at umbilicus. GENITOURINARY: Light to moderate bleeding. EXTREMITIES: No cyanosis or edema, non-tender, without signs of DVT. Medications and IVs: Active Medications Acetaminophen (Tylenol) 650 mg PO Q4H PRN PRN Reason: PAIN SCALE 1 TO 2 Al Hydroxide/Mg Hydroxide (Milk Of Magnesia Liq) 30 ml PO Q12H PRN PRN Reason: Mild Constipation Benzocaine (Americaine 20% Top [place]) 1 spray TOPICAL Q4H PRN PRN Reason: For Perineum Discomfort Bisacodyl (Dulcolax Supp) 10 mg RECTAL DAILY PRN PRN Reason: SEVERE CONSITIPATION Ephedrine Sulfate (Ephedrine/Ns Syringe) 10 mg IV.PUSH UNSCH PRN PRN Reason: SEE LABEL COMMENTS Stop: 03/31/18 16:31 Oxytocin (Pitocin 30 Units/Ns 500 Ml Premix) 30 units in 500 mls @ 100 mls/hr IV.CONT UNSCH PRN PRN Reason: Heavy bleeding Ibuprofen (Motrin) 800 mg PO Q8H PRN PRN Reason: For Cramping Last Admin: 03/31/18 15:50 Dose: 800 mg Lactulose (Lactulose Liq) 30 ml PO DAILY PRN PRN Reason: SEVERE CONSITIPATION Miscellaneous Information (Misc Information) 1 each OTHER UNSCH PRN PRN Reason: SEE LABEL COMMENTS Stop: 03/31/18 16:31 Miscellaneous Information (Misc Information) 1 each OTHER UNSCH PRN PRN Reason: SEE LABEL COMMENTS Stop: 03/31/18 16:31 Misoprostol (Cytotec) 25 mcg VAGINAL Q4H PRN PRN Reason: FOR INDUCTION Last Admin: 03/29/18 01:51 Dose: 25 mcg Naloxone HCl (Narcan Inj) 0.1 mg IV.PUSH Q2M PRN PRN Reason: for opiate reversal Ondansetron HCl (Zofran Odt) 4 mg PO Q6H PRN PRN Reason: NAUSEA OR VOMITING Oxycodone/Acetaminophen (Percocet 5/325 Mg) 1 tab PO Q4H PRN PRN Reason: PAIN SCALE 3 TO 5 Last Admin: 03/31/18 06:32 Dose: 1 tab Oxycodone/Acetaminophen (Percocet 5/325 Mg) 2 tab PO Q4H PRN PRN Reason: PAIN SCALE 6 TO 10 Senna/Docusate Sodium (Mary-Colace) 1 tab PO BID [facility] Last Admin: 03/31/18 11:09 Dose: Not Given Sennosides (Senokot) 17.2 mg PO Q12H PRN PRN Reason: Moderate Constipation Sodium Chloride (Ns Flush) 2 ml IV.FLUSH BID [facility] Last Admin: 03/31/18 11:09 Dose: Not Given Sodium Chloride (Ns Flush) 2 ml IV.FLUSH PRN PRN PRN Reason: FLUSH AFTER USING IV ACCESS Witch Merced/Glycerin (Tucks Pads) 1 applicatio RECTAL QID PRN PRN Reason: HEMORRHOIDS Zolpidem Tartrate (Ambien) 5 mg PO HS PRN PRN Reason: SLEEP Assessment and Plan - Diagnosis (1) Elective induction of labor planned Status: Resolved (2) 41 weeks gestation of Code(s): Z3A.41 - 41 weeks gestation of Status: Acute (3) (normal spontaneous vaginal delivery) Code(s): O80 - Encounter for full-term uncomplicated delivery Status: Acute Plan: ROUTINE - Plan PT DOING WELL PAIN WELL MANAGED WITH ORAL PAIN MEDICATION BONDING WITH INFANT ROUTINE CARE Discharge Planning: DC HOME TOMORROW
--- NOTE | 2018-03-31 16:09 | P.DS ---
Date of admission: 03/28/18 20:31 Primary care physician: NOT REQUIRED Anticipated date of discharge: 04/01/18 Brief History from admission: pt 40 6/7 weeks was seen in the office on 03/[address] Shadi vigil and vertex per ultrasound. Pt scheduled for admission with cytotec induction and Pitocin the following day. GBS positive DS: Diagnosis - Discharge Diagnosis (1) 41 weeks gestation of Status: Acute (2) (normal spontaneous vaginal delivery) Status: Acute DS: Medications - Discharge Medications Prescriptions: ibuprofen 800 mg PO Q8H PRN #30 tab PRN Reason: For Cramping oxycodone-acetaminophen 1 tab PO Q4H PRN #10 tab PRN Reason: moderate pain DS: Summary Hospital Course: 41 WEEK INDUCTION ROUTINE CARE - Time Spent with Patient Total time spent providing and/or coordinating discharge services: Less than 30 minutes Exam Vital signs: Vital Signs 03/30/18 16:30 03/30/18 17:00 03/30/18 17:32 Temperature 97.8 F Pulse Rate 86 74 284 H Respiratory Rate 16 Blood Pressure 102/63 109/73 91/67 L 03/30/18 18:01 03/30/18 18:45 03/30/18 19:00 Temperature Pulse Rate 102 H 106 H Respiratory Rate 18 18 Blood Pressure 113/63 124/71 126/73 03/30/18 19:10 03/30/18 19:55 03/30/18 20:00 Temperature Pulse Rate 91 H 96 H 112 H Respiratory Rate Blood Pressure 101/80 126/76 143/82 H 03/30/18 20:15 03/30/18 20:46 03/30/18 21:15 Temperature Pulse Rate 110 H 109 H 123 H Respiratory Rate 18 Blood Pressure 144/44 H 143/94 H 139/84 03/30/18 22:00 03/30/18 22:20 03/30/18 22:30 Temperature Pulse Rate 121 H 114 H 104 H Respiratory Rate 18 Blood Pressure 137/70 137/78 136/84 03/30/18 22:35 03/30/18 22:46 03/30/18 22:50 Temperature 99.4 F Pulse Rate 117 H Respiratory Rate 18 18 Blood Pressure 128/93 H 03/30/18 23:05 03/30/18 23:19 03/30/18 23:31 Temperature Pulse Rate 100 H 100 H 96 H Respiratory Rate 18 18 Blood Pressure 120/95 H 125/77 135/78 03/30/18 23:35 03/30/18 23:49 03/31/18 00:30 Temperature Pulse Rate 105 H Respiratory Rate 18 18 18 Blood Pressure 124/89 03/31/18 00:31 03/31/18 00:50 03/31/18 08:00 Temperature 98.4 F 98.4 F Pulse Rate 85 85 88 Respiratory Rate 18 20 Blood Pressure 121/72 138/82 121/67 Intake & Output 03/30/18 03/31/18 03/31/18 18:59 06:59 18:59 Intake Total 2300 / 2300 Balance 2300 / 2300 Intake: IV 2300 / 2300 LR 1000 mL Inj 1,000 ML @ 125 2000 / 2000 mls/hr IV.SIG .Q8H [facility] Rx#: [id number] Pfizerpen-G Inj 2,500,000 UNIT 200 / 200 In NS Inj 100 ML @ 200 mls/hr IV.SIG Q4H [facility] Rx#:[id number] Pfizerpen-G Inj 5,000,000 UNIT 100 / 100 In NS Inj 100 ML @ 200 mls/hr IV.SIG ONCE ONE Rx#:[id number] Narrative: SE PP NOTE Results Procedures completed during hospitalization: Labs on day of discharge: Labs from last 24 hours 03/30/18 21:48 Puncture Site Cord blood Cord ABG pH 7.248 Cord ABG pCO2 47.6 L Cord ABG pO2 18.3 Cord ABG HCO3 20.1 Cord ABG Base Excess -6.0 Cord ABG O2 Sat 24.8 Discharge Plan - Discharge Disposition Patient Disposition: 01 Discharge Home - Discharge Condition Condition: Good - Discharge Order Discharge Orders: Discharge Order (Routine); Ordered 04/01/18 Ordered By: Lanny Rivera PSYCHOLOGY PHYSICIAN Clear for Discharge (Routine); Ordered 04/01/18 Ordered By: Lanny Rivera - Discharge Details Anticipated Discharge Date: 04/01/18 - Physicians Team Primary Care Provider: NOT REQUIRED, Attending Provider: Tay Hsu - Rxs /Orders / Referrals /Forms Prescriptions: New ibuprofen 800 mg Tablet 800 mg PO Q8H PRN (Reason: For Cramping) Qty: 30 RF: 0 oxycodone-acetaminophen 5-325 mg Tablet 1 tab PO Q4H PRN (Reason: moderate pain) Qty: 10 RF: 0 No Action No Known Home Medications Referrals: Tay Hsu MD [Physician] - See Instructions (CALL TO BE SEEN IN THE OFFICE IN 2 WEEKS) NOT REQUIRED, [Primary Care Provider] - See Instructions - Discharge Instructions Patient Printed Instructions: Preeclampsia and Eclampsia After Delivery (GEN) - Post Discharge Care Plan Care Plan Goals: Discharge Plan of Care After Vaginal Delivery Congratulations on your new baby! We want your recovery to be bautista and trouble free. After having a baby, your body may be very tired. It can take time to recover from a vaginal delivery. You may stay in the hospital or center from 1 to 4 days. In some cases, you may be able to go home the same day. Changing Expectations for Parents: Most new mothers experience some form of the baby blues. These mood swings are caused by hormonal shifts in your body. Stress due to the recent changes in your life and lack of sleep also have an effect. The baby blues may last a few days or up to 2 weeks. Balancing the Blues: Recognize your need to talk, to feel protected, to have private time. Allow yourself to cry, to sit, to think. Ask for help when you need it, and accept help when its offered. Knowing your needs is not a weakness. Share your thoughts with your partner. Or crab picker the phone and call a friend, your mother , a sister, or an aunt. Rest, eat right, and get some light exercise. The mind feels best when the body feels good. Diet and Activity: * Eat fresh fruit and vegetables, whole grains, and bran cereals. * Drink plenty of water. * Dont strain to have a bowel movement. * Follow activity as directed. * After you deliver your baby, you can start to exercise when you feel ready. Let your body be your guide. If you are : * Ask before you take any medicine. * If you leak milk, it will help to nurse right before the activity. * Talk to your healthcare provider about alcohol, if you choose to drink. * When youre sick, check with your physician if the medications would impact the breast feeding * Ask your physician before taking any prescription or [id number] medicines, herbs, or supplements. * Ask your physician what to use for prevention while you are nursing. If you have Stitches: * Gently wipe from front to back after you urinate or have a bowel movement.. * After wiping, spray warm water on the area. Or you can have a sitz bath. This means sitting in a tub with a few inches of water in it. * Pat the area dry or use a hairdryer on a cool setting. * Do not use soap or any solution except water on the area. * You can take a shower unless told not to. * Change sanitary pads at least every 2 to 4 hours.. * Place cold or heat packs on the area as directed by your physician or nurses. Keep a thin towel between the pack and your skin. When to call your doctor: Call your doctor right away if you have: Fever of 100.5F (38C) or higher, or as directed by your doctor. Heavy or gushing bleeding from the vagina. Discharge that has a bad odor. No bowel movement within one week after the of your baby. Pain or urgency with urination, or inability to urinate. Severe pain in the belly or increased pain near your stitches. Signs of Depression include: You dont want to be with the baby. Your symptoms are not getting better, and youre getting more upset. You have no interest in eating or are not able to sleep. You think you may harm yourself or the baby. The Depression After Delivery hotline (161-875-2464) may also be helpful. If your symptoms worsen call your OB Physician, or go to an Urgent Care Center or Emergency Room Smoking is Dangerous to your health. Avoid second hand smoke Call the 24-hour crisis hotline for domestic abuse at Follow-Up: Do Not miss your follow-up appointment. Increasing symptoms of depression. Keep up with all your appointments and yearly check ups. Call 911: Call 911 right away if you have: Chest pain. Shortness of breath. Any pain or tenderness in your calf. Severe depression or Thoughts of harm to self and others.
--- NOTE | 2018-04-01 09:05 | P.PNOB ---
Subjective Post day: 2 Interval history: Mother and baby doing well. Pt is attempting to breastfeed. Reports moderate vaginal bleeding. Eating well and urinating, has not had a BM. Pain controlled with medication. Objective Vital Signs/I&O: Vital Signs 03/31/18 20:45 Temperature 98.5 F Pulse Rate 80 Respiratory Rate 18 Blood Pressure 116/83 Result Diagrams: 03/28/18 21:00 03/28/18 21:00 Objective Remarks: GENERAL: Well-nourished, well-developed patient. CARDIOVASCULAR: Regular rate and rhythm without murmurs, gallops, or rubs. RESPIRATORY: Breath sounds equal bilaterally. No accessory muscle use. ABDOMEN/GI: Abdomen soft, non-tender. Fundus: Firm, non-tender at umbilicus. GENITOURINARY: Moderate bleeding. EXTREMITIES: No cyanosis or edema, non-tender, without signs of DVT. Medications and IVs: Active Medications Acetaminophen (Tylenol) 650 mg PO Q4H PRN PRN Reason: PAIN SCALE 1 TO 2 Al Hydroxide/Mg Hydroxide (Milk Of Magnesia Liq) 30 ml PO Q12H PRN PRN Reason: Mild Constipation Benzocaine (Americaine 20% Top [place]) 1 spray TOPICAL Q4H PRN PRN Reason: For Perineum Discomfort Bisacodyl (Dulcolax Supp) 10 mg RECTAL DAILY PRN PRN Reason: SEVERE CONSITIPATION Oxytocin (Pitocin 30 Units/Ns 500 Ml Premix) 30 units in 500 mls @ 100 mls/hr IV.CONT UNSCH PRN PRN Reason: Heavy bleeding Ibuprofen (Motrin) 800 mg PO Q8H PRN PRN Reason: For Cramping Last Admin: 04/01/18 01:14 Dose: 800 mg Lactulose (Lactulose Liq) 30 ml PO DAILY PRN PRN Reason: SEVERE CONSITIPATION Misoprostol (Cytotec) 25 mcg VAGINAL Q4H PRN PRN Reason: FOR INDUCTION Last Admin: 03/29/18 01:51 Dose: 25 mcg Naloxone HCl (Narcan Inj) 0.1 mg IV.PUSH Q2M PRN PRN Reason: for opiate reversal Ondansetron HCl (Zofran Odt) 4 mg PO Q6H PRN PRN Reason: NAUSEA OR VOMITING Oxycodone/Acetaminophen (Percocet 5/325 Mg) 1 tab PO Q4H PRN PRN Reason: PAIN SCALE 3 TO 5 Last Admin: 03/31/18 22:59 Dose: 1 tab Oxycodone/Acetaminophen (Percocet 5/325 Mg) 2 tab PO Q4H PRN PRN Reason: PAIN SCALE 6 TO 10 Senna/Docusate Sodium (Mary-Colace) 1 tab PO BID [facility] Last Admin: 03/31/18 22:59 Dose: 1 tab Sennosides (Senokot) 17.2 mg PO Q12H PRN PRN Reason: Moderate Constipation Sodium Chloride (Ns Flush) 2 ml IV.FLUSH BID [facility] Last Admin: 04/01/18 03:40 Dose: Not Given Sodium Chloride (Ns Flush) 2 ml IV.FLUSH PRN PRN PRN Reason: FLUSH AFTER USING IV ACCESS Witch Merced/Glycerin (Tucks Pads) 1 applicatio RECTAL QID PRN PRN Reason: HEMORRHOIDS Zolpidem Tartrate (Ambien) 5 mg PO HS PRN PRN Reason: SLEEP Assessment and Plan - Plan PPD #2 PT DOING WELL PAIN WELL MANAGED WITH ORAL PAIN MEDICATION BONDING WITH Discharge Planning: Discharge home today with oral pain medication. Follow-up in office in two weeks, or sooner if needed.
[2018-04-01 10:01] VITALS: BP 137/80
[2018-04-01 10:02] VITALS: PULSE 86; RESP 16
[2018-04-01 10:03] VITALS: TEMP 98.2
[2018-04-01] MEDS: Senna/Docusate Sodium 8.6/50 MG Tablet PO SCH (10:17)
== END 2018-04-01 15:26 | disposition home or self-care (01) ==
LOC: H2E 20:31 → H1EA 03-31 01:06
PROVIDERS: ADMIT Obstetrics & Gynecology; ATTEND Obstetrics & Gynecology